=== PATIENT | female | born 1990 | race African-American/Black ===

== ENCOUNTER 2025-02-12 19:03 | Emergency (ER) | payer MEDICAID ==
[2025-02-12 19:05] VITALS: PULSE 110; RESP 16; O2SAT 100
== END 2025-02-12 20:46 | disposition left against medical advice (07) ==
LOC: ER 19:03
DX: R05.9 Cough, unspecified (principal); Z53.21 Procedure and treatment not carried out due to patient leaving prior to being seen by health care provider
CPT/HCPCS: 99281